=== PATIENT | male | born 1995 | race African-American/Black ===

== ENCOUNTER 2020-02-13 06:14 | Emergency (ER) | payer SELFPAY ==
[~2020-02-13] VITALS: Ht 182.9 cm; Wt 72.7 kg
[2020-02-13 06:20] VITALS: BP 135/89
--- NOTE | 2020-02-13 07:01 | RAD ---
EXAM: CHEST 2 VIEWS. HISTORY: Shortness of breath. COMPARISON: None. FINDINGS: Frontal and lateral views of the chest are obtained. There are no confluent infiltrates. There is no pneumothorax or pleural effusion. The heart is not enlarged. IMPRESSION: 1. No confluent infiltrates. Electronically signed by: Heather Carbajal MD (02/13/2020 6:58 AM) [facility]
[2020-02-13] MEDS ORDERED: KETOROLAC 30 MG/ML VIAL. IVP ONE (07:30)
[2020-02-13 07:33] LABS: BASO % 1 % (0-3); EOS # 0.1 x10^3/uL (0.0-0.7); EOS % 2 % (0-3); HEMATOCRIT 45.6 % (39.0-53.0); HEMOGLOBIN 15.7 g/dL (13.0-17.5); LYMPH # 1.5 x10^3/uL (1.0-4.8); LYMPH % 26 % (24-48); MEAN CORPUSCULAR HEMOGLOBIN 30 pg (25-35); MEAN CORPUSCULAR HGB CONC 35 g/dL (31-37); MEAN CORPUSCULAR VOLUME 88 fL (79-100); MONO # 0.5 x10^3/uL (0.0-1.1); MONO % 9 % (0-9); NEUT # 3.7 x10^3/uL (1.8-7.7); NEUT % 63 % (31-73); PLATELET COUNT 226 x10^3/uL (140-400); RED BLOOD COUNT 5.19 x10^6/uL (4.30-5.70); RED CELL DISTRIBUTION WIDTH 13.1 % (11.5-14.5); WHITE BLOOD COUNT 5.9 x10^3/uL (4.0-11.0)
[2020-02-13 07:36] LABS: CALCIUM 8.8 mg/dL (8.5-10.1); CREATININE 1.1 mg/dL (0.7-1.3); GFR 97.9; POTASSIUM 4.1 mmol/L (3.5-5.1)
--- NOTE | 2020-02-13 07:37 | PHYS DOC ---
Past Medical History Past Medical History: No Pertinent History Past Surgical History: No Surgical History Smoking Status: Current Every Day Smoker Additional Information: Black and milds Alcohol Use: Occasionally Additional Information: beer, liquor, wine General Adult EDM: Chief Complaint: SHORTNESS OF BREATH HPI: HPI: Patient is a 24 year old male who presents with R sided pleuritic chest pain that started 2 days ago. It was initially intermittent but came on last night and has now gone away. Pain is worse with deep breaths but is not worse with movement. He has not tried anything at home for the pain. He had some shortness of breath that has improved since he is gotten Toradol. He denies any cough, URI symptoms, fever, abdominal pain, nausea, vomiting. He denies any trauma Review of Systems: Review of Systems: General: Denies fever, chills, sweats, fatigue Eyes: Denies drainage, blurred vision HENT: Denies rhinorrhea, sore throat Respiratory: Denies cough, shortness of breath, wheezing Cardiac: Denies edema, palpitations.reports chest pain GI: Denies abdominal pain, N/V MSK: Denies back pain, neck pain Skin: Denies rash, jaundice Neuro: Denies headache, dizziness Psychiatric: Denies SI/HI Heart Score: Risk Factors: Risk Factors: DM, Current or recent (<one month) smoker, HTN, HLP, family history of CAD, obesity. Risk Scores: Score 0 - 3: 2.5% MACE over next 6 weeks - Discharge Home Score 4 - 6: 20.3% MACE over next 6 weeks - Admit for Clinical Observation Score 7 - 10: 72.7% MACE over next 6 weeks - Early Invasive Strategies Current Medications: Current Medications Medications (Trade) Dose Ordered Sig/Geovanni Start Time Stop Time Status Last Admin Dose Admin Ketorolac Tromethamine (Toradol 30mg Vial) 30 mg 1X ONCE 02/13/20 07:30 02/13/20 07:31 02/13/20 07:08 30 MG Allergies: Allergies: Allergies Coded Allergies Type Severity Reaction Last Updated Verified No Known Drug Allergies 02/13/20 No Physical Exam: PE: Constitutional: Well developed, well nourished, Cooperative, NAD, non-toxic appearing HEENT: Normocephalic, atraumatic, oropharynx moist, EOMI, PERRL, no drainage from eyes, normal conjunctiva Neck: Supple, normal range of motion, no stridor Cardiovascular: RRR, 2+ radial pulses bilaterally, no edema Respiratory: CTA bilaterally, no respiratory distress, no wheezing/crackles Abdomen: Soft, nontender, nondistended, no masses Skin: Warm, dry, intact Extremities: No obvious deformities Neurologic: Alert and Oriented x3, motor and sensory function grossly normal, no focal deficits Psychologic: Normal affect, normal judgment, normal mood. No SI/HI Current Patient Data: Vital Signs: Vital Signs Date Time Temp Pulse Resp B/P (MAP) Pulse Ox O2 Delivery O2 Flow Rate FiO2 02/13/20 06:20 98.0 65 27 135/89 (104) 99 Room Air 98.0 EKG: EKG: [] Radiology/Procedures: Radiology/Procedures: [] Course & Med Decision Making: Course & Med Decision Making Pertinent Labs and Imaging studies reviewed. (See chart for details) Patient is a 24-year-old male who presents to the emergency room complaining of pleuritic chest pain. EKG is negative his does not show signs of STEMI or pericarditis. Chest x-ray was done and does not show a pneumothorax or pneumon ia. Basic labs were ordered including CBC, BMP, d-dimer. Patient does not appear to have an exam consistent with coronavirus. D-dimer negative. Patient overall well appearing. Likely pleurisy. Will treat him with high-dose NSAIDs. I discussed with him that he should not take ibuprofen, Aleve, aspirin while on this. Patient also mentions that his girlfriend just found out she had gonorrhea. He will be treated with Rocephin and azithromycin here in the emergency room. We discussed that he cannot have sex for 10 days and that all partner should be tested and treated. Patient's test results and vitals while in the ED were fully reviewed and discussed with the patient. Patient is stable and at this time does not need admission to the hospital. We have discussed strict return precautions and the importance of following up with their Primary Care Physician. Patient stated understanding and was given an opportunity to ask any questions. Fredi Disclaimer: Fredi Disclaimer: This electronic medical record was generated, in whole or in part, using a voice recognition dictation system. Departure Departure Impression: Primary Impression: Pleurisy Additional Impression: Urethritis Disposition: 01 HOME, SELF-CARE Condition: STABLE Referrals: NO PCP (PCP) Scripts Naproxen Sodium (ANAPROX DS) 550 Mg Tablet 1 TAB PO BID for 15 Days, #30 TAB 0 Refills Prov: CLAUDE SCOTT MD 02/13/20 Justicifation of Admission Dx: Justifications for Admission: Justification of Admission Dx: No CLAUDE SCOTT MD Feb 13, 2020 07:37
[2020-02-13 07:41] LABS: C-REACTIVE PROTEIN 8.2 mg/L (0-3.3)
--- NOTE | 2020-02-13 07:50 | EKG ---
[facility] [address] [place] [address] Test Date: 2020-02-13 Test Time: 06:24:25 Pat Name: CECIL BARAKAT Department: Room: Gender: M [employer]: : 1995 Requested By: CLAUDE SCOTT Order Number: [id number] Reading MD: Measurements Intervals [place] Rate: 67 P: 72 DC: 176 QRS: 75 QRSD: 90 T: 36 QT: 368 QTc: 391 Interpretive Statements SINUS RHYTHM LEFT ATRIAL ABNORMALITY ABNORMAL ECG RI6.02 No previous ECG available for comparison
[2020-02-13] MEDS ORDERED: NAPR-682 PO (08:04)
[2020-02-13] MEDS ORDERED: DEXAMETHASONE SOD PHOS 4 MG/ML VIAL IVP ONE (08:15)
[2020-02-13] MEDS ORDERED: AZITHROMYCIN 250 MG TABLET. PO ONE (08:30)
[2020-02-13] MEDS ORDERED: ONDANSETRON PF 4 MG/2 ML VIAL. IVP ONE (08:30)
[2020-02-13] MEDS ORDERED: cefTRIAXone IM 250 MG VIAL IM ONE (08:30)
== END 2020-02-13 08:42 | disposition home or self-care (01) ==
LOC: ER 06:14
DX: R09.1 Pleurisy (principal); N34.2 Other urethritis; R07.81 Pleurodynia; R06.02 Shortness of breath; F17.200 Nicotine dependence, unspecified, uncomplicated
CPT/HCPCS: 36415; 71046; 80048; 82550; 83615; 84484; 85025; 85379; 86140; 93005; 96372; 96374; 96375; 99285; J0696; J1100; J1885; J2405

== ENCOUNTER 2021-04-06 07:34 | Emergency (ER) | payer SELFPAY ==
[~2021-04-06] VITALS: Ht 182.9 cm; Wt 76.8 kg
[~2021-04-06 07:34] MED LIST: NAPR-682 PO
--- NOTE | 2021-04-06 08:06 | PHYS DOC ---
Past Medical History Past Medical History: No Pertinent History Past Surgical History: No Surgical History Smoking Status: Current Every Day Smoker Alcohol Use: Occasionally General Adult EDM: Chief Complaint: SEXUALLY TRANSMITTED DISEASE HPI: HPI: Patient is a 25 year old male who present to ER wanting to be treated for chlamydia. Patient said he was tested positive for chlamydia 1 month ago, was treated with antibiotic but did not wait for 10 days before he resumed sexual intercourse with the same partner. He came back today want to be treated again. Patient denies any penile discharge, no pelvic pain, no abdominal pain, no fever. Review of Systems: Review of Systems: Constitutional: Denies fever or chills. [] Eyes: Denies change in visual acuity. [] HENT: Denies nasal congestion or sore throat. [] Respiratory: Denies cough or shortness of breath. [] Cardiovascular: Denies chest pain or edema. [] GI: Denies abdominal pain, nausea, vomiting, bloody stools or diarrhea. [] : Denies dysuria. [] Musculoskeletal: Denies back pain or joint pain. [] Integument: Denies rash. [] Neurologic: Denies headache, focal weakness or sensory changes. [] Endocrine: Denies polyuria or polydipsia. [] Lymphatic: Denies swollen glands. [] Psychiatric: Denies depression or anxiety. [] Heart Score: C/O Chest Pain: N/A Risk Factors: Risk Factors: DM, Current or recent (<one month) smoker, HTN, HLP, family history of CAD, obesity. Risk Scores: Score 0 - 3: 2.5% MACE over next 6 weeks - Discharge Home Score 4 - 6: 20.3% MACE over next 6 weeks - Admit for Clinical Observation Score 7 - 10: 72.7% MACE over next 6 weeks - Early Invasive Strategies Allergies: Allergies: Allergies Coded Allergies Type Severity Reaction Last Updated Verified No Known Drug Allergies 04/06/21 No Physical Exam: PE: Constitutional: Well developed, well nourished, no acute distress, non-toxic appearance. [] HENT: Normocephalic, atraumatic, bilateral external ears normal, oropharynx moist, no oral exudates, nose normal. [] Eyes: PERRLA, EOMI, conjunctiva normal, no discharge. [] Neck: Normal range of motion, no tenderness, supple, no stridor. [] Cardiovascular:Heart rate regular rhythm, no murmur [] Lungs & Thorax: Bilateral breath sounds clear to auscultation [] Abdomen: Bowel sounds normal, soft, no tenderness, no masses, no pulsatile masses. [] Skin: Warm, dry, no erythema, no rash. [] Back: No tenderness, no CVA tenderness. [] Extremities: No tenderness, no cyanosis, no clubbing, ROM intact, no edema. [] Neurologic: Alert and oriented X 3, normal motor function, normal sensory function, no focal deficits noted. [] Psychologic: Affect normal, judgement normal, mood normal. [] Current Patient Data: Labs: Current Medications Medications (Trade) Dose Ordered Sig/Geovanni Route PRN Reason Start Time Stop Time Status Last Admin Dose Admin Ceftriaxone Sodium (Rocephin Im) 500 mg 1X ONCE IM 04/06/21 08:30 04/06/21 08:31 DC 04/06/21 08:18 Azithromycin (Zithromax) 1,000 mg 1X ONCE PO 04/06/21 08:30 04/06/21 08:31 DC 04/06/21 08:18 Vital Signs: Vital Signs Date Time Temp Pulse Resp B/P (MAP) Pulse Ox O2 Delivery O2 Flow Rate FiO2 04/06/21 07:45 98.5 76 16 136/90 (104) 98 Room Air 98.5 EKG: EKG: [] Radiology/Procedures: Radiology/Procedures: [] Course & Med Decision Making: Course & Med Decision Making Pertinent Labs and Imaging studies reviewed. (See chart for details) [] Dragon Disclaimer: Fredi Disclaimer: This electronic medical record was generated, in whole or in part, using a voice recognition dictation system. Departure Departure Impression: Primary Impression: STD (male) Disposition: HOME / SELF CARE / HOMELESS Condition: STABLE Referrals: NO PCP (PCP) Patient Instructions: Sexually Transmitted Disease Additional Instructions: Thank you for visiting our Emergency Department. We appreciate you trusting us with your care. If any additional problems come up don't hesitate to return to visit us. Please follow up with your primary care provider so they can plan additional care if needed and know about the problem that you had. If symptoms worsen come back to the Emergency Department. Any concerning symptoms that start such as chest pain, shortness of air, weakness or numbness on one side of the body, running high fevers or any other concerning symptoms return to the ER. Scripts Doxycycline Hyclate (DOXYCYCLINE HYCLATE) 100 Mg Capsule 1 CAP PO BID, #14 CAP Prov: KATIE LORENZ DO 04/06/21 KATIE LORENZ DO Apr 06, 2021 08:06
[2021-04-06 08:14] VITALS: BP 136/83
[2021-04-06] MEDS ORDERED: DOXY100C3 PO (08:18)
[2021-04-06] MEDS ORDERED: cefTRIAXone IM 500 MG VIAL. IM ONE (08:30)
[2021-04-06] MEDS ORDERED: AZITHROMYCIN 250 MG TABLET. PO ONE (08:30)
== END 2021-04-06 08:38 | disposition home or self-care (01) ==
LOC: ER 07:34
DX: A64 Unspecified sexually transmitted disease (principal); F17.200 Nicotine dependence, unspecified, uncomplicated
CPT/HCPCS: 96372; 99283; J0696